=== PATIENT | female | born 1980 | race African-American/Black ===

== ENCOUNTER 2016-04-30 20:47 | Emergency (ER) | payer MEDICAID, OTHER ==
[~2016-04-30] VITALS: Ht 149.9 cm; Wt 59.0 kg
[~2016-04-30 20:47] MED LIST: IBUPROFEN600 MG PO; NKM
[2016-04-30 21:11] VITALS: BP 124/71
[2016-04-30] MEDS ORDERED: TdaP Vaccine 0.5ml Syr IM ONE (22:15)
[2016-04-30] MEDS ORDERED: TINACTIN 1%1 APPLIC TOPIC (22:30)
[2016-04-30] MEDS ORDERED: IBUPROFEN600 MG ORAL (22:30)
[2016-04-30 22:58] VITALS: BP_SYST 124; BP_SYST 129; BP_DIAS 71
--- NOTE | 2016-05-01 09:41 | Emergency Room Report ---
History of Present Illness General Chief Complaint: General Complaint Source: Patient Present Illness HPI Patient presents with 2 problems: 1. rash on neck that is worsening over the past month. She has been in contact with homeless people who have had rashes. This itches and has spread. No pain or fever. Only on neck in 2 areas. 2. Recent R shoulder pain which started when she had to cover for co-workers who called in sick. There was no trauma. Pain is 8-9/10, radiates to her neck and also gives her a headache. No meds taken for this. No cough, CP, NVD, dysuria. She doesn't believe she is . She cares for her daughter and is lifting her. Allergies: Coded Allergies: No Known Allergies (Unverified , 05/30/12) Patient History Past Medical History: see triage record Social History Narrative works for [id number]. Has infant Last Menstrual Period: 04/25/15 Now: No Reviewed Nursing Documentation: PMH: Agreed, PSxH: Agreed Nursing Documentation-PMH Past Medical History: No Stated History Review of Systems All Other Systems: negative except mentioned in HPI Physical Exam Vital Signs Date Time Temp Pulse Resp B/P Pulse Ox O2 Delivery O2 Flow Rate FiO2 04/30/16 21:02 98.4 83 14 124/71 99 Room Air Sp02 EP Interpretation: reviewed, normal General Appearance: well appearing, no apparent distress, GCS 15 Head: normocephalic Eyes: bilateral eye PERRL, bilateral eye normal inspection ENT: moist mucus membranes Neck: full range of motion, supple, no bony tend Respiratory: chest non-tender, lungs clear, normal breath sounds Cardiovascular #1: regular rate, rhythm Cardiovascular #2: 2+ radial (R) Gastrointestinal: normal inspection, normal bowel sounds, non tender, no mass, non-distended Musculoskeletal: back normal, gait/station normal, normal range of motion - however with tenderness in shoulder strap muscles with lifing and forceful adduction Neurologic: alert, oriented x3, motor strength/tone normal, DTRs symmetric, sensory intact, speech normal Psychiatric: mood/affect normal Skin: warm/dry, rash - anterior neck - 2 macules with minimal hyperpigmentation - annular appearance of inflammation Medical Decision Making Diagnostic Impression: Primary Impression: Right shoulder strain Qualified Codes: S46.911A - Strain of unspecified muscle, fascia and tendon at shoulder and upper arm level, right arm, initial encounter Additional Impression: tinea corporis ER Course Rash appears like T corporis. Other considerations are early cellulitis, allergic reaction. Needs empiric treatment. Based on mechanism of repetitive movements and not trauma, no images indicated at this time. Clinically either sprain or strain. Sling applied by tech. Position good and neurovasc normal as checked by me. Last Vital Signs Date Time Temp Pulse Resp B/P Pulse Ox O2 Delivery O2 Flow Rate FiO2 04/30/16 22:58 98.4 86 14 124/71 99 Room Air Status: improved Disposition: HOME, SELF-CARE Condition: Stable Scripts Tolnaftate (Tolnaftate) 15 Gm Cream..g. 1 APPLIC TOPIC BID, #30 GM Prov: Pierce Sumner M.D. 04/30/16 Ibuprofen* (MOTRIN*) 600 Mg Tablet 600 MG ORAL Q8H Y for For Pain, #20 TAB 0 Refills Prov: Pierce Sumner M.D. 04/30/16 Departure Forms: Return to Work Return to Work in (Days): 3 Return to Work Date: May 03, 2016 Work Restrictions: No Heavy Lifting Other Restrictions: Must rest R shoulder Patient Instructions: Body Ringworm, Shoulder Sprain Additional Instructions: Heat, rest and elevation will help the shoulder. Also, physical therapy can help. Tylenol OK. Pierce Sumner M.D. May 01, 2016 09:41
== END 2016-04-30 22:58 | disposition home or self-care (01) ==
LOC: EMR 21:52
DX: S46.911A Strain of unspecified muscle, fascia and tendon at shoulder and upper arm level, right arm, initial encounter (principal); X50.9XXA Other and unspecified overexertion or strenuous movements or postures, initial encounter; Y92.9 Unspecified place or not applicable; B35.4 Tinea corporis; Z23 Encounter for immunization
CPT/HCPCS: 90471; 90715; 99283

== ENCOUNTER 2016-07-30 17:39 | Emergency (ER) | payer OTHER ==
[~2016-07-30] VITALS: Ht 149.9 cm; Wt 61.2 kg
[~2016-07-30 17:39] MED LIST changes: +IBUPROFEN600 MG ORAL; +TINACTIN 1%1 APPLIC TOPIC
[2016-07-30] MEDS ORDERED: TYLENOL EXTRA500 MG ORAL (18:22)
[2016-07-30] MEDS ORDERED: TERBINAFINE15 GM TP (18:22)
[2016-07-30] MEDS ORDERED: ZOFRAN4 M3 ORAL (18:22)
[2016-07-30 18:34] VITALS: BP 113/61
--- NOTE | 2016-07-30 20:29 | Emergency Room Report ---
History of Present Illness General Chief Complaint: Diarrhea Source: Patient Present Illness HPI The patient is a 35-year-old female presenting for nausea and diarrhea for the past 3 days. The patient states that both of her children have had the same symptoms before the onset of her symptoms. She denies any vomiting. She denies other symptoms including fever, chills, headache, dizziness, blurred vision, abdominal pain, hematemesis, melena The patient does admit to a rash she noticed on both thighs one week prior. This itches. She denies any pain Allergies: Coded Allergies: No Known Allergies (Unverified , 05/30/12) Patient History Past Medical History: see triage record Pertinent Family History: none Last Menstrual Period: 07/23/16 Now: No Reviewed Nursing Documentation: PMH: Agreed, PSxH: Agreed Nursing Documentation-PMH Past Medical History: No Stated History Review of Systems All Other Systems: negative except mentioned in HPI Physical Exam Vital Signs Date Time Temp Pulse Resp B/P Pulse Ox O2 Delivery O2 Flow Rate FiO2 07/30/16 18:02 98.1 72 18 113/61 99 Room Air Sp02 EP Interpretation: reviewed, normal General Appearance: no apparent distress, alert, GCS 15, non-toxic Head: normocephalic, atraumatic Eyes: bilateral eye PERRL, bilateral eye normal inspection ENT: hearing grossly normal, normal pharynx, no angioedema, normal voice Respiratory: chest non-tender, lungs clear, normal breath sounds, speaking full sentences Cardiovascular #1: regular rate, rhythm, no edema Gastrointestinal: normal bowel sounds, non tender, soft, non-distended, no guarding, no rebound Genitourinary: normal inspection, no CVA tenderness Musculoskeletal: back normal, gait/station normal, normal range of motion, non- tender Neurologic: alert, oriented x3, responsive, motor strength/tone normal, sensory intact, speech normal Psychiatric: judgement/insight normal, memory normal, mood/affect normal, no suicidal/homicidal ideation Skin: warm/dry, normal turgor, rash - 1cm circular erythematous rash of bilat medial thighs with raised borders. Lymphatic: no adenopathy Medical Decision Making PA Attestation Dr. Bhardwaj is my supervising physician. Patient management was discussed with my supervising physician Diagnostic Impression: Primary Impression: Gastroenteritis Additional Impression: Tinea corporis ER Course The patient is a 35-year-old female presenting for nausea, diarrhea, and rash Differential diagnoses considered include but not limited to gastroenteritis, pancreatitis, appendicitis, tinea corporis, dermatitis Physical exam: Vitals are within normal limits. No apparent distress Abdomen is soft and nontender. Nondistended. Normal bowel sounds. No CVA tenderness. no guarding 1cm circular erythematous rash of bilat medial thighs with raised borders. The patient is given Tylenol and Zofran and is feeling better. She will be discharged home with a prescription for the same medications and terbinafine. ER precautions given Last Vital Signs Date Time Temp Pulse Resp B/P Pulse Ox O2 Delivery O2 Flow Rate FiO2 07/30/16 18:34 98.1 78 18 113/61 99 Room Air Status: improved Disposition: HOME, SELF-CARE Condition: Improved Scripts Acetaminophen* (TYLENOL EXTRA STRENGTH*) 500 Mg Tablet 500 MG ORAL Q8H Y for Prn Headache/Temp > 101, #30 TAB 0 Refills Prov: COBY LLANOS.A. 07/30/16 Ondansetron* (ZOFRAN*) 4 Mg Tablet 4 MG ORAL Q6H Y for Nausea & Vomiting, #15 TAB Prov: TERJOSE LANCOBY P.A. 07/30/16 Terbinafine Hcl (TERBINAFINE) 15 Gm Cream..g. 15 GM TP BID, #15 GM Prov: TERJOSE LANCOBY P.A. 07/30/16 Referrals: ARIELLE MAGALLANES,REFERRING (PCP) Patient Instructions: Viral Gastroenteritis, Adult, Body Ringworm Additional Instructions: I discussed my findings with the patient. All questions and concerns have been answered. Treatment and medication compliance have been addressed. I advised the patient that they need to follow up with PMD in 3-5 days. Return to ED if symptoms worsen, new symptoms arise, or if needed for any reason. Patient verbalized understanding of discharge instructions. COBY LLANOS Jul 30, 2016 20:29
== END 2016-07-30 18:37 | disposition home or self-care (01) ==
LOC: EMR 18:29
DX: K52.9 Noninfective gastroenteritis and colitis, unspecified (principal); B35.4 Tinea corporis
CPT/HCPCS: 99284

== ENCOUNTER 2016-09-05 14:33 | Emergency (ER) | payer OTHER ==
[~2016-09-05] VITALS: Ht 149.9 cm; Wt 61.2 kg
[~2016-09-05 14:33] MED LIST changes: +TERBINAFINE15 GM TP; +TYLENOL EXTRA500 MG ORAL; +ZOFRAN4 M3 ORAL
[2016-09-05] MEDS ORDERED: CLARITIN-D 241 EACH PO (15:01)
[2016-09-05] MEDS ORDERED: IBUPROFEN600 MG ORAL (15:01)
[2016-09-05] MEDS ORDERED: ARTIFICIAL TEAR15 ML BOTH EYES (15:01)
[2016-09-05] MEDS ORDERED: TERBINAFINE HCL30 GM TP (15:01)
[2016-09-05 15:02] VITALS: BP 134/88
[2016-09-05 15:26] VITALS: BP 134/88
--- NOTE | 2016-09-05 17:52 | Emergency Room Report ---
History of Present Illness General Chief Complaint: General Complaint Source: Patient Present Illness HPI The patient is a 35-year-old female presenting for bilateral eye itchiness, right shoulder pain, and left leg rash. The patient does admit to history of seasonal allergies. The patient states eye itchiness began 2 months prior and has been intermittent. The patient states that the symptoms are worsened at work but is unsure of what may be causing it. She has not tried medications for it. She denies any eye pain, blurred vision, dizziness, eye discharge. Right shoulder pain began 2 months prior as well. It is described as a 5/10 dull ache to the right shoulder and does not radiate. She denies any injury to this area. She denies any numbness or tingling. Pain is worse with movement of the shoulder. The patient was seen for a tinea corporis infection of both legs and treated with terbinafine. She states that this medication helped but she developed another lesion on the left leg. The patient states that it does itch but denies any pain. She denies any other symptoms including nausea, vomiting, fever, chills, cough, shortness of breath or Allergies: Coded Allergies: No Known Allergies (Unverified , 05/30/12) Patient History Past Medical History: see triage record Pertinent Family History: none Last Menstrual Period: 08/15/16 Now: No : 5 Para: 3 Reviewed Nursing Documentation: PMH: Agreed, PSxH: Agreed Nursing Documentation-PMH Past Medical History: No Stated History Review of Systems All Other Systems: negative except mentioned in HPI Physical Exam Vital Signs Date Time Temp Pulse Resp B/P Pulse Ox O2 Delivery O2 Flow Rate FiO2 09/05/16 14:40 97.9 87 17 134/88 99 Room Air Sp02 EP Interpretation: reviewed, normal General Appearance: no apparent distress, alert, GCS 15, non-toxic Head: normocephalic, atraumatic Eyes: bilateral eye PERRL, bilateral eye normal inspection ENT: hearing grossly normal, normal pharynx, no angioedema, normal voice, uvula midline, nasal congestion Respiratory: chest non-tender, lungs clear, normal breath sounds, no wheezing, speaking full sentences Cardiovascular #1: regular rate, rhythm, no edema Genitourinary: normal inspection, no CVA tenderness Musculoskeletal: back normal, gait/station normal, normal range of motion, non- tender Neurologic: alert, oriented x3, responsive, motor strength/tone normal, sensory intact, speech normal Psychiatric: judgement/insight normal, memory normal, mood/affect normal, no suicidal/homicidal ideation Reflexes: 3+ bicep (R), 3+ bicep (L), 3+ tricep (R), 3+ tricep (L), 3+ knee (R) , 3+ knee (L) Skin: normal color, warm/dry, well hydrated, rash - L medial thigh 2cm in diameter circular lesion with raised borders and scaling. No erythema. No central opening Lymphatic: no adenopathy Procedures Splinting Splinting : Consent: Verbal Location: R arm Pre-Made Type: sling Pre-Proc Neuro Vasc Exam: normal Post-Proc Neuro Vasc Exam: normal Patient Tolerated: Well Complications: None Medical Decision Making PA Attestation Dr. Calvo is my supervising physician. Patient management was discussed with my supervising physician Diagnostic Impression: Primary Impression: Allergic conjunctivitis Qualified Codes: H10.13 - Acute atopic conjunctivitis, bilateral Additional Impressions: Tinea corporis Seasonal allergies Qualified Codes: J30.2 - Other seasonal allergic rhinitis Right shoulder strain Qualified Codes: S46.911D - Strain of unspecified muscle, fascia and tendon at shoulder and upper arm level, right arm, subsequent encounter ER Course The patient is a 35-year-old female presenting for bilateral eye itchiness, right shoulder pain, and left leg rash. Differential diagnoses considered but not limited to allergic conjunctivitis, bacterial conjunctivitis, viral conjunctivitis, muscle strain, fracture, insect bite, eczema, tinea, among others PE: vitals WNL. NAD HEENT exam is unremarkable. There is no conjunctival injection. No lid edema. No discharge. No lymphadenopathy. Right shoulder has full active range of motion. Nontender. No obvious deformity. Left leg: There is a 2 cm diameter elevated, scaling lesion of the medial thigh. There are raised borders. No central clearing. The patient will be discharged home and is given a prescription for Claritin, artificial teardrops, Motrin, and topical terbinafine. ER precautions are given Last Vital Signs Date Time Temp Pulse Resp B/P Pulse Ox O2 Delivery O2 Flow Rate FiO2 09/05/16 15:26 97.9 17 134/88 99 Room Air 5/19/17 14:40 87 Status: improved Disposition: HOME, SELF-CARE Condition: Improved Scripts Terbinafine Hcl (TERBINAFINE HCL) 30 Gm Cream..g. 30 GM TP BID, #30 GM Prov: COBY LLANOS P.A. 09/05/16 Dextran 70/Hypromellose (ARTIFICIAL TEARS EYE DROPS*) 15 Ml Drops 1 DROP BOTH EYES PRN, #15 ML 0 Refills Prov: COBY LLANOS.A. 09/05/16 Loratadine/Pseudoephedrine (CLARITIN-D 24 HOUR TABLET) 1 Each Tab.er.24h 1 TAB PO DAILY, #30 TAB Prov: COBY LLANOS P.A. 09/05/16 Ibuprofen* (MOTRIN*) 600 Mg Tablet 600 MG ORAL Q8H Y for For Pain, #30 TAB 0 Refills Prov: TERZIANJUNAIDY P.A. 09/05/16 Referrals: ARIELLE MAGALLANES,REFERRING (PCP) Patient Instructions: Bacterial Conjunctivitis, [id number], Shoulder Pain, [id number], Allergies Additional Instructions: I discussed my findings with the patient. All questions and concerns have been answered. Treatment and medication compliance have been addressed. I advised the patient that they need to follow up with PMD in 3-5 days. Return to ED if symptoms worsen, new symptoms arise, or if needed for any reason. Patient verbalized understanding of discharge instructions. COBY LLANOS September 05, 2016 17:52
== END 2016-09-05 15:24 | disposition home or self-care (01) ==
LOC: EMR 15:16
DX: H10.13 Acute atopic conjunctivitis, bilateral (principal); B35.4 Tinea corporis; S46.811A Strain of other muscles, fascia and tendons at shoulder and upper arm level, right arm, initial encounter; X58.XXXA Exposure to other specified factors, initial encounter; Y92.89 Other specified places as the place of occurrence of the external cause
CPT/HCPCS: 29240; 99284

== ENCOUNTER 2017-01-18 18:54 | Emergency (ER) | payer OTHER ==
[~2017-01-18] VITALS: Ht 149.9 cm; Wt 59.0 kg
[~2017-01-18 18:54] MED LIST changes: +ARTIFICIAL TEAR15 ML BOTH EYES; +CLARITIN-D 241 EACH PO; +TERBINAFINE HCL30 GM TP
[2017-01-18 19:10] VITALS: BP 114/69
[2017-01-18 20:07] LABS: APPEARANCE,URINE SLIGHTLY CLOUDY; KETONES,URINE NEGATIVE (NEGATIVE); LEUKOCYTE ESTERASE ,URINE 3+ (NEGATIVE); NITRITE,URINE NEGATIVE (NEGATIVE); PH,URINE 6 (4.5-8.0); PROTEIN,URINE NEGATIVE (NEGATIVE); UROBILINOGEN,URINE 1 MG/DL (0.0-1.0)
[2017-01-18 20:16] LABS: BACTERIA,URINE MODERATE /HPF; ICTOTEST NEGATIVE; RBC,URINE 0-2 /HPF (0 - 2); SQUAMOUS EPITHELIAL CELL,UR MANY /LPF (NONE/OCC); WBC,URINE 20-30 /HPF (0 - 2)
--- NOTE | 2017-01-18 20:27 | Emergency Room Report ---
History of Present Illness General Chief Complaint: Female Urogenital Problems Present Illness HPI 36-year-old female presents to the emergency department complaining of 8/10 in severity dysuria frequency, urgency and intermittent bilateral low back pain described as aches x1 week. Patient denies fevers, chills, nausea, vomiting. Patient is not taking control and has not had her period for 2 months. She reports some vaginal discharge with itching and mild odor. Denies vaginal bleeding, swollen tender lymph nodes, skin lesions, rashes or joint pain. Denies abdominal pain. Denies CP, Palpitations, LOC, AMS, dizziness, Changes in Vision, Sensation, paresthesias, or a sudden severe headache. Allergies: Coded Allergies: No Known Allergies (Unverified , 05/30/12) Patient History Past Medical History: see triage record Past Surgical History: none Pertinent Family History: none Last Menstrual Period: last week of november Immunizations: UTD Reviewed Nursing Documentation: PMH: Agreed, PSxH: Agreed Nursing Documentation-PMH Past Medical History: No Stated History Review of Systems All Other Systems: negative except mentioned in HPI Physical Exam Vital Signs Date Time Temp Pulse Resp B/P (MAP) Pulse Ox O2 Delivery O2 Flow Rate FiO2 01/18/17 18:59 98.1 78 18 114/69 98 Room Air Sp02 EP Interpretation: reviewed, normal General Appearance: no apparent distress, alert, GCS 15, non-toxic Head: normocephalic, atraumatic Eyes: bilateral eye normal inspection, bilateral eye PERRL ENT: hearing grossly normal, normal voice Neck: full range of motion Respiratory: lungs clear, normal breath sounds, speaking full sentences Cardiovascular #1: regular rate, rhythm Gastrointestinal: normal bowel sounds, non tender, soft, no guarding, no rebound Rectal: deferred Genitourinary: normal inspection, no CVA tenderness, cervix normal, ext genitalia/vag normal, other - no obvious vaginal d/c noted, no CMT Musculoskeletal: back normal, gait/station normal, normal range of motion, non- tender Neurologic: alert, oriented x3, responsive, motor strength/tone normal, sensory intact, speech normal Psychiatric: judgement/insight normal, memory normal, mood/affect normal Skin: normal color, no rash, warm/dry, well hydrated Lymphatic: no adenopathy Medical Decision Making PA Attestation Dr. Singh is my supervising Physician whom patient management has been discussed with. Diagnostic Impression: Primary Impression: UTI (urinary tract infection) Qualified Codes: N30.00 - Acute cystitis without hematuria Additional Impression: Positive test ER Course 36-year-old female presents to the emergency department complaining of frequency , urgency and bilateral low back pain x1 week. Patient denies fevers, chills, nausea, vomiting. Patient is not taking control and has not had her period for 2 months. She reports some vaginal discharge with itching and mild odor. Denies vaginal bleeding, swollen tender lymph nodes, skin lesions, rashes or joint pain. Denies abdominal pain. Denies CP, Palpitations, LOC, AMS , dizziness, Changes in Vision, Sensation, paresthesias, or a sudden severe headache. Ddx considered but are not limited to UTi , Pyelo, STI, Stone, Cystitis, Vital signs: are WNL, pt. is afebrile H&PE are most consistent with UTI will also r/o , no CVA tenderness, and afebrile I do not suspect pyelo. ORDERS: - UA labs are attached : Consistent with UTI: moderate bacteria, elevated WBC' s and Leuks. -Wet Mount Prep: presence of bacteria, no clue, trich or yeast. -Urine Hcg: Positive ED INTERVENTIONS: None required at this time. -D/w pt. to follow up with PMD and OBGYN, pt. will be given vitamins. gave pt. ED return precautions for worsening or new symptoms. DISCHARGE: At this time pt. is stable for d/c to home. Will provide printed patient care instructions, and any necessary prescriptions. Care plan and follow up instructions have been discussed with the patient prior to discharge. Labs Test 01/18/17 19:20 Urine Color Bing Urine Appearance Slightly cloudy Urine pH 6 (4.5-8.0) Urine Specific Glen 1.025 (1.005-1.035) Urine Protein Negative (NEGATIVE) Urine Glucose (UA) Negative (NEGATIVE) Urine Ketones Negative (NEGATIVE) Urine Occult Blood Negative (NEGATIVE) Urine Nitrite Negative (NEGATIVE) Urine Bilirubin Negative (NEGATIVE) Urine Ictotest Negative Urine Urobilinogen 1 MG/DL (0.0-1.0) Urine Leukocyte Esterase 3+ (NEGATIVE) Urine RBC 0-2 /HPF (0 - 2) Urine WBC 20-30 /HPF (0 - 2) Urine Squamous Epithelial Cells Many /LPF (NONE/OCC) Urine Bacteria Moderate /HPF (NONE) Urine HCG, Qualitative Positive Last Vital Signs Date Time Temp Pulse Resp B/P (MAP) Pulse Ox O2 Delivery O2 Flow Rate FiO2 01/18/17 19:10 98.1 18 114/69 98 Room Air 01/18/17 18:59 78 Disposition: HOME, SELF-CARE Condition: Stable Scripts Vit #91/Fe Fum/Fa/Dha ( + DHA COMBO PACK) 1 Each Combo..pkg 1 EACH PO DAILY for 30 Days, #2 PACK Prov: Kenya Ragsdale 01/18/17 Nitrofurantoin Monohyd/M-Cryst* (MACROBID 100 MG*) 100 Mg Capsule 100 MG ORAL EVERY 12 HOURS for 5 Days, #10 CAP Prov: Kenya Ragsdale 01/18/17 Referrals: ARIELLE MAGALLANES,REFERRING (PCP) Patient Instructions: First Trimester of , [id number], Urinary Tract Infection Additional Instructions: Take medications as directed. Follow up with a Primary Care Provider / OBGYN in 3-5 days, even if your symptoms have resolved. Return sooner to ED if new symptoms occur, or current symptoms become worse. Do not drink alcohol - Please note that this Emergency Department Report was dictated using [employer] unloader technology software, occasionally this can lead to erroneous entry secondary to interpretation by the dictation equipment. Kenya Ragsdale Jan 18, 2017 20:27
[2017-01-18] MEDS ORDERED: NITROFURANTOIN100 M2 ORAL (20:31)
[2017-01-18] MEDS ORDERED: PRENATAL + DHA1 EAC1 PO (20:31)
[2017-01-18 20:42] VITALS: BP 114/69
== END 2017-01-18 20:42 | disposition home or self-care (01) ==
LOC: EMR 19:30
DX: N39.0 Urinary tract infection, site not specified (principal); Z32.01 Encounter for pregnancy test, result positive
CPT/HCPCS: 81003; 81025; 87086; 87181; 87210; 99284

== ENCOUNTER 2017-05-08 15:16 | Emergency (ER) | payer OTHER ==
[~2017-05-08] VITALS: Ht 149.9 cm; Wt 59.0 kg
[~2017-05-08 15:16] MED LIST changes: +NITROFURANTOIN100 M2 ORAL; +PRENATAL + DHA1 EAC1 PO
[2017-05-08 15:30] VITALS: BP 114/56
[2017-05-08] MEDS ORDERED: PROMETHAZINE-D118 ML ORAL (16:20)
[2017-05-08] MEDS ORDERED: IBUPROFEN600 MG ORAL (16:20)
[2017-05-08 16:40] VITALS: BP 114/56
--- NOTE | 2017-05-08 20:22 | Emergency Room Report ---
History of Present Illness General Chief Complaint: Headache Source: Patient Present Illness HPI The patient is a 36-year-old presenting for 2 days of cough and headache. She admits to sick contacts who are her children with similar symptoms. Pain is a 6 /10 dull ache and does not radiate. She denies any recent travel. She denies other symptoms including nausea, vomiting, fever, chills, wheezing, shortness of breath Allergies: Coded Allergies: No Known Allergies (Unverified , 05/30/12) Patient History Past Medical History: see triage record Pertinent Family History: none Last Menstrual Period: 05/08/17 Reviewed Nursing Documentation: PMH: Agreed, PSxH: Agreed Nursing Documentation-PMH Past Medical History: No Stated History Review of Systems All Other Systems: negative except mentioned in HPI Physical Exam Vital Signs Date Time Temp Pulse Resp B/P (MAP) Pulse Ox O2 Delivery O2 Flow Rate FiO2 05/08/17 15:21 98.1 70 14 114/56 99 Room Air Sp02 EP Interpretation: reviewed, normal General Appearance: no apparent distress, alert, GCS 15, non-toxic Head: normocephalic, atraumatic Eyes: bilateral eye normal inspection, bilateral eye PERRL ENT: hearing grossly normal, normal pharynx, no angioedema, normal voice, uvula midline, nasal congestion Neck: full range of motion, supple/symm/no masses Respiratory: chest non-tender, lungs clear, normal breath sounds, no wheezing, speaking full sentences Cardiovascular #1: regular rate, rhythm, no edema Musculoskeletal: back normal, gait/station normal, normal range of motion, non- tender Neurologic: alert, oriented x3, responsive, motor strength/tone normal, sensory intact, speech normal Psychiatric: judgement/insight normal, memory normal, mood/affect normal, no suicidal/homicidal ideation Skin: normal color, no rash, warm/dry, well hydrated Lymphatic: no adenopathy Medical Decision Making PA Attestation Dr. Bhardwaj is my supervising physician. Patient management was discussed with my supervising physician Diagnostic Impression: Primary Impression: Upper respiratory disease ER Course The patient is a 36-year-old presenting for 2 days of cough and headache. Differential diagnosis include but not limited to pharyngitis, sinusitis, AOM, bronchitis, PNA Physical exam: Vitals within normal limits. Afebrile. No apparent distress HEENT exam: There is no tonsillar edema, erythema, or exudate. Uvula midline. Moist mucous membranes. There is no cervical lymphadenopathy. Lungs are clear to auscultation bilaterally Skin is warm and dry. No rash The patient will be discharged home with a prescription for motrin and cough medication and is given ER precautions. Patient will followup with primary care Last Vital Signs Date Time Temp Pulse Resp B/P (MAP) Pulse Ox O2 Delivery O2 Flow Rate FiO2 05/08/17 16:40 98.1 78 12 114/56 99 Room Air Status: improved Disposition: HOME, SELF-CARE Condition: Improved Scripts D-Methorphan Hb/Prometh Hcl* (PROMETHAZINE-DM SYRUP*) 118 Ml Syrup 5 ML ORAL Q6H Y for For Cough, #118 ML 0 Refills Prov: COBY LLNAOS 05/08/17 Ibuprofen* (MOTRIN*) 600 Mg Tablet 600 MG ORAL Q8H Y for For Pain, #30 TAB 0 Refills Prov: COBY LLANOS 05/08/17 Patient Instructions: Upper Respiratory Infection, Adult Additional Instructions: I discussed my findings with the patient. All questions and concerns have been answered. Treatment and medication compliance have been addressed. I advised the patient that they need to follow up with PMD in 3-5 days. Return to ED if pain remains or worsens, cough worsens or remains, you notice blood in your sputum, you notice wheezing, you experience a fever, or if needed for any reason. Patient verbalized understanding of discharge instructions. COBY LLANOS May 08, 2017 20:22
== END 2017-05-08 16:40 | disposition home or self-care (01) ==
LOC: EMR 15:30
DX: J06.9 Acute upper respiratory infection, unspecified (principal)
CPT/HCPCS: 99284

== ENCOUNTER 2017-06-06 11:19 | Emergency (ER) | payer OTHER ==
[~2017-06-06] VITALS: Ht 149.9 cm; Wt 59.0 kg
[~2017-06-06 11:19] MED LIST changes: +PROMETHAZINE-D118 ML ORAL
[2017-06-06] MEDS ORDERED: TESSALON PERLE100 MG ORAL (14:45)
--- NOTE | 2017-06-06 14:51 | Emergency Room Report ---
History of Present Illness General Chief Complaint: Flu Like Symptoms Source: Patient Present Illness HPI 36-year-old female presents with sore throat, runny nose, cough for 7 days. States sore throat, +mild dry cough. Pain with swallowing however has still been able to eat/drink. No change in voice. No pain with extension/movement of neck. Cough has been dry. Denies fever or chills. Patient states that this is a 3rd time she has been sick since the beginning of the year. Has 3 kids. States they have been sick to. Allergies: Coded Allergies: No Known Allergies (Unverified , 05/30/12) Patient History Past Medical History: see triage record Past Surgical History: none Pertinent Family History: none Last Menstrual Period: 06/02/2017 Reviewed Nursing Documentation: PMH: Agreed, PSxH: Agreed Nursing Documentation-PMH Past Medical History: No Stated History Review of Systems All Other Systems: negative except mentioned in HPI Physical Exam Vital Signs Date Time Temp Pulse Resp B/P (MAP) Pulse Ox O2 Delivery O2 Flow Rate FiO2 06/06/17 14:05 99.1 93 18 100/62 99 Room Air 99.1 Sp02 EP Interpretation: reviewed, normal General Appearance: normal inspection, well appearing, no apparent distress, alert, GCS 15, non-toxic Head: normocephalic, atraumatic Eyes: bilateral eye normal inspection, bilateral eye PERRL, bilateral eye EOMI ENT: normal voice, moist mucus membranes, pharyngeal erythema, other - no exudate no enlargement no BROOM MAKER Neck: normal inspection, full range of motion, supple Respiratory: normal inspection, lungs clear, normal breath sounds, no respiratory distress, no retraction, no wheezing, speaking full sentences, chest symmetrical Cardiovascular #1: normal inspection, regular rate, rhythm, no edema, normal capillary refill Cardiovascular #2: 2+ radial (R), 2+ radial (L) Gastrointestinal: normal inspection, non tender, soft, non-distended, no guarding Musculoskeletal: normal inspection, back normal, normal range of motion, non- tender Neurologic: normal inspection, alert, oriented x3, responsive, motor strength/ tone normal, sensory intact, normal gait, speech normal Psychiatric: normal inspection, judgement/insight normal, memory normal Skin: normal inspection, normal color, no rash, warm/dry, well hydrated, normal turgor Medical Decision Making Diagnostic Impression: Primary Impression: Upper respiratory infection, viral ER Course 36-year-old female, cough, running nose, sore throat DDX: Likely viral pharyngitis, rule out pneumonia Other serious causes such as BROOM MAKER / RPA / deep space neck infection history/physical most consistent with viral pharyngitis Plan: pain control ER course: Patient remains stable in ED. Pt states improvement of pain Disposition: Patient will be discharged to home. Patient will follow up with primary care doctor within 5 days. Strict return precautions discussed with patient such as worsening throat pain/swelling, dysphagia, high fever or chills, shortness of breath, abdominal pain, which may indicate severe illness. Patient verbalized understanding and agreed with plan. Please note that this Emergency Department Report was dictated using [employer] operations inspector technology software, occasionally this can lead to erroneous entry secondary to interpretation by the dictation equipment. Chest X-ray CXR: Ordered: Yes 1 view Indication: Cough EP interpretation: Yes Interpretation: No consolidation, no effusion, no PTX, no acute cardiopulmonary disease Impression: No acute disease Electronically signed by Niya Singh MD Last Vital Signs Date Time Temp Pulse Resp B/P (MAP) Pulse Ox O2 Delivery O2 Flow Rate FiO2 06/06/17 14:37 99.1 06/06/17 14:15 93 18 Room Air 06/06/17 14:05 100/62 99 Disposition: HOME, SELF-CARE Condition: Improved Scripts Benzonatate* (TESSALON PERLE*) 100 Mg Capsule 100 MG ORAL THREE TIMES A DAY for 7 Days, #21 PERLE 0 Refills Prov: Niya Singh M.D. 06/06/17 Patient Instructions: Viral Respiratory Infection, [id number] Niya Singh M.D. Jun 06, 2017 14:51
[2017-06-06 14:58] VITALS: BP 100/62
--- NOTE | 2017-06-07 11:31 | Diagnostic Imaging Report ---
Indication: Dyspnea Comparison: None A single view chest radiograph was obtained. Findings: Cardiomediastinal appearance is within normal limits for age. Pulmonary vascularity is appropriate. The diaphragmatic contour is smooth and costophrenic angles are sharp. No pleural effusions are identified. The bones are unremarkable. Impression: No acute findings
== END 2017-06-06 14:58 | disposition home or self-care (01) ==
LOC: EMR 11:49
DX: J06.9 Acute upper respiratory infection, unspecified (principal); B97.89 Other viral agents as the cause of diseases classified elsewhere
CPT/HCPCS: 71045; 99283